=== PATIENT | male | born 1940 | race Hispanic/Latino ===

== ENCOUNTER 2017-04-02 14:29 | Outpatient (CLI) | payer MEDICARE, OTHER ==
--- NOTE | 2017-04-02 14:54 | XRay Report ---
ROUTINE CHEST, TWO VIEWS: Cough PA and lateral views demonstrate the heart and mediastinal contour to be of normal size and shape. The lungs are clear and fully expanded and the soft tissues and bony structures are normal. IMPRESSION: Normal study.
== END 2017-04-02 14:30 | disposition home or self-care (01) ==
LOC: SPVIMAG 14:29
PROVIDERS: ATTEND Internal Medicine
DX: R05 Cough (principal)
CPT/HCPCS: 71020